=== PATIENT | female | born 1935 | race Caucasian/White ===

== ENCOUNTER 2020-03-12 19:00 | Inpatient (IN) | payer BC, SELFPAY ==
[~2020-03-12] VITALS: Ht 162.6 cm; Wt 41.4 kg
[2020-03-12 19:05] VITALS: BP_SYST 141
--- NOTE | 2020-03-12 19:05 | NUR ---
Pt triaged awaiting bed placement in [facility] at this time
--- NOTE | 2020-03-12 20:40 | NUR ---
Placed in room 2 . Placed on machine maintenance mechanic, blood pressure machine and pulse oximeter. To gown for exam. Side rails up. Report given to Carola HERRING.
--- NOTE | 2020-03-12 20:42 | NUR ---
Patient BIB by J[facility] from [facility]. C/O GI bleeding x today. Per reported, patient had rectal bleeding today. Hx Depression, Dementia, GERD. A/O,X1, denies pain, place patient on caridac monitor and pulse ox.
[2020-03-12] MEDS ORDERED: LUBI24CA5 PO (20:52)
[2020-03-12] MEDS ORDERED: FAMO20TA8 PO (20:52)
[2020-03-12] MEDS ORDERED: BISA10SU61 RC (20:52)
[2020-03-12] MEDS ORDERED: SER25 PO (20:52)
[2020-03-12] MEDS ORDERED: POLY17PO4 PO (20:52)
[2020-03-12] MEDS ORDERED: MULT-976 PO (20:52)
--- NOTE | 2020-03-12 20:53 | NUR ---
Medication reconciliation completed with information provided by facility. Any prior medication reconciliation on file was reviewed and corrected.
--- NOTE | 2020-03-12 21:00 | NUR ---
swabbed rectal for occult blood and sent to lab
--- NOTE | 2020-03-12 21:09 | NUR ---
Blood for labwork drawn from furniture stainer. Patient tolerated well.
[2020-03-12 21:53] LABS: ANION GAP 7 (5-15); CALCIUM 8.5 mg/dL (8.4-11.0); CHLORIDE 103 mmol/L (98-107); CREATININE 1.16 mg/dL (0.55-1.30); GLUCOSE 167 mg/dL (70-99); POTASSIUM 3.5 mmol/L (3.5-5.1); SODIUM SERUM 138 mmol/L (136-145); UREA NITROGEN, BLOOD 22 mg/dL (8-21)
[2020-03-12 21:58] LABS: ALANINE AMINOTRANSFERASE 24 U/L (12-78); ALBUMIN 2.8 g/dL (3.4-4.8); ASPARTATE AMINOTRANSFERASE 15 U/L (10-37); TOTAL BILIRUBIN 0.3 mg/dL (0.0-1.0)
[2020-03-12 22:00] LABS: PROTHROMBIN TIME 10.1 SECS (9.5-12.5)
[2020-03-12 22:01] LABS: BASOPHILS % (AUTO) 0.1 % (0.0-2.0); HEMATOCRIT 31.1 % (36-48); HEMOGLOBIN 10.6 g/dL (12.0-16.0); LYMPHOCYTES # (AUTO) 1.2 K/uL (1.0-5.5); LYMPHOCYTES % (AUTO) 13.3 % (20.5-51.5); MEAN CORPUSCULAR HEMOGLOBIN 34 pg (27-31); MEAN CORPUSCULAR HGB CONC 34 % (32-36); MEAN CORPUSCULAR VOLUME 100 fL (79.0-98.0); MONOCYTES # (AUTO) 0.6 K/uL (0.0-1.0); MONOCYTES % (AUTO) 7.2 % (1.7-9.3); NEUTROPHILS # (AUTO) 6.9 K/uL (1.8-7.7); NEUTROPHILS % (AUTO) 79.4 % (40.0-70.0); PLATELET COUNT (AUTO) 387 K/uL (130-430); RED BLOOD CELL COUNT(AUTO) 3.12 MIL/uL (4.2-6.2); RED CELL DISTRIBUTION WIDTH 13.2 % (9.0-15.0); WHITE BLOOD COUNT (AUTO) 8.7 K/uL (4.8-10.8)
--- NOTE | 2020-03-12 23:09 | NUR ---
Patient resting quietly. No acute distress noted. Vital signs within normal range.
--- NOTE | 2020-03-13 00:20 | NUR ---
Swbbed Covid19 and MRSA and sent to lab.
--- NOTE | 2020-03-13 00:30 | NUR ---
# 20 gauge angiocath placed to left forearm by NEVAEH Harris. Use of asceptic technique. Opsite placed over site. Blood return noted. Blood for lab drawn from site. Flushed with 10 cc of normal saline. No evidence of infiltration noted. Patient tolerated well.
--- NOTE | 2020-03-13 01:32 | NUR ---
Patient will be admitted to care of Dr. Quach. Admitted to Tele unit. Will go to room 104B. Belongings list completed. Complete and up to date summary report printed. SBAR report to be given at bedside with opportunity for questions.
--- NOTE | 2020-03-13 01:42 | NUR ---
ADMIT NOTE PATIENT ADMITTED TO 104 B, UNDER DR. VERDIN. Addendum: 03/13/20 at 0215 by Simin Boogie RN DUPLICATE*
--- NOTE | 2020-03-13 01:50 | NUR ---
ADMISSION: The patient, KOBE THOMPSON, 84 y/o, F admitted by MEHDI VERDIN MD, was given written information regarding hospital policies, unit procedures and contact persons. Valuables were checked and DOCUMENTED. Addendum: 03/13/20 at 0215 by Simin Boogie RN WRONG TIME. CORRECT TIME 0142*
[2020-03-13 01:51] VITALS: BP_SYST 148
--- NOTE | 2020-03-13 01:51 | NUR ---
INITIAL NOTE PATIENT IS STABLE AND LAYING IN BED. NO S/S OF RESPIRATORY DISTRESS NOTED. CALL LIGHT IN REACH. PATIENT UNSUCCESSFULLY DEMONSTRATES USAGE OF CALL LIGHT. WILL CONTINUE TO MONITOR. BED IS LOCKED, ALARMED, AND AT THE LOWEST POSITION. FALL, SAFETY, ASPIRATION, AND RESPIRATORY PRECAUTIONS WILL BE IN PLACE THROUGHOUT THE SHIFT. PLAN OF CARE IS DISCUSSED WITH PATIENT.
--- NOTE | 2020-03-13 02:19 | NUR ---
CONSULT: CONSULT CALLED FOR DR. ZEINA SCHWAB VIDEO SYSTEM REPAIRER @ THIS MOMENT I SPOKE WITH WU LINDSEY REASON FOR CONSULT: GI BLEEDING REQUESTING CONSULT: DR. RODRIGUEZ ARGON TESTER PHONE NUMBER: [phone]
--- NOTE | 2020-03-13 02:26 | NUR ---
ATTEMPTED TO CALL CELESTINO STRICKLAND, CHILD, FOR MORE INFORMATION ON PT. CALL ANSWERED BUT STATIC. WILL CALL AGAIN.
--- NOTE | 2020-03-13 02:33 | NUR ---
COMMUNICATED WITH [facility] , . COMMUNICATED WITH [facility], ABOUT MORE INFORMATION. STATED THEY WILL CALL BACK WITH MORE INFORMATION. CURRENTLY CONTRACT CONSULTANT DON'T HAVE INFORMATION ON PREVIOUS DIET, MEDICAL RECORDS, AND FLU SHOT.
--- NOTE | 2020-03-13 04:08 | NUR ---
PATIENT IS STABLE AND LAYING IN BED. NO S/S OF RESPIRATORY DISTRESS NOTED. CALL LIGHT IN REACH.
--- NOTE | 2020-03-13 04:35 | NUR ---
PT HAD A BOWEL MOVEMENT AT THIS TIME. BOWEL WAS DARK RED AND LOOSE.
--- NOTE | 2020-03-13 06:00 | NUR ---
CALLED [facility], .NO ANSWER.
--- NOTE | 2020-03-13 06:00 | NUR ---
COMMUNICATED WITH CELESTINO STRICKLAND ABOUT [phone] ABOUT HISTORY AND FLU VACCINE. FAMILY STATED SHE PT DID NOT GET FLU. EM AGREES TO GIVE FLU VACCINE.
--- NOTE | 2020-03-13 06:01 | NUR ---
FAMILY REQUESTED FACETIME WITH PT WHEN SHE WAKES UP. WILL CONTINUE TO MONITOR OR ENDORSE TO AM NURSE.
[2020-03-13] MEDS ORDERED: FLU VACC QS2020-21(65UP)/PF 0.7 ML/SYRINGE I.M. PRN (06:30)
--- NOTE | 2020-03-13 06:35 | NUR ---
CLOSING NOTE PATIENT IS STABLE AND LAYING IN BED. NO S/S OF RESPIRATORY DISTRESS NOTED. CALL LIGHT IN REACH. BED IS LOCKED, ALARMED, AND AT THE LOWEST POSITION. FALL, SAFETY, ASPIRATION, AND RESPIRATORY PRECAUTIONS HAS BEEN IN PLACE THROUGHOUT THE SHIFT. WILL CONTINUE TO MONITOR UNTIL SBAR REPORT IS ENDORSED TO AM NURSE.
--- NOTE | 2020-03-13 09:46 | NUR ---
alert, awake, confused, and disoriented. Seen by GI, clear liquid given, and awaiting KUB. Ate 1/2 jello, and 20cc OJ, then closed mouth.
--- NOTE | 2020-03-13 10:09 | NUR ---
Nutrition Update Ishaan Scale 15 noted. Pt admitted for GI bleed. Diet: clear liquid BMI: 15.7 kg/m2 RD to follow per nutrition care standards.
[2020-03-13 12:00] VITALS: BP_SYST 158
--- NOTE | 2020-03-13 15:22 | NUR ---
DC Planning: Transfer to [facility] net work: notified dtr/Charmaine about transfer pt to [facility] [facility], she is agreeable with POC , transfer to [facility] under dr. Olvera. Peer to peer requested between dr. Olvera and LORRAINE Dela Cruz. BENSON Craig is arranging the transfer and to call nursing station with the transfer details/bed assignment, destination and ambulance transfer and time. Charmaine/dtr # [phone] requests RN to call her when transfer the pt. Hal # [phone].-- NEVAEH Driscoll made aware. Addendum: 03/13/20 at 1644 by Petty Beebe RN >> Dr Quach cancelled the transfer to [facility] [facility] and gave new order to dc pt home with prescription. Per DAINA Jorgensen, she notifed Charmaine who had concerns about pt's condition. She requested pt transferred to [place] as per original order. Joslyn will consult with and coordinate with Hal.
[2020-03-13 16:17] VITALS: BP_SYST 152
--- NOTE | 2020-03-13 16:46 | NUR ---
still very confused, climbed over bedrails, starting walking in room, with minimal assistance, back to bed, slept for about 2 hours, then pulled HL on LFA out. New HL in LAC, #22 in. KUB result reported to dr Hinson, Mineral oil enema initiated. Did double check with critical care rn, Mariela, , per critical care rn, patient did have a large BM, before admitted to the hospital. Received a phone call from daughter, CELESTINO just now, , " i changed my mind, I want my mother go to [place] , instead of back to facility'" Author called [facility] and let Rafa, coordinator, aware of the transfer, so paperwork can proceed.( Rafa's number [phone])
--- NOTE | 2020-03-13 17:11 | NUR ---
DC PLANNING: Spoke with Jet from [facility]. Accepting at [facility] will be Dr. Olvera. Still waiting for bed. If needed, after hours case management can be reached at [phone]. Ambulance with [facility] is on will call. [phone].
--- NOTE | 2020-03-13 17:25 | NUR ---
attending called back, made aware patient is getting transferred to [facility] as scheduled. Mineral oil enema given secondary to severe impaction/ constipation,.
[2020-03-13] MEDS ORDERED: MINERAL OIL 133 ML ENEMA RC ONE (17:30)
[2020-03-13 19:51] VITALS: BP_SYST 157
[2020-03-13 19:52] VITALS: BP_SYST 157
--- NOTE | 2020-03-14 | NUR ---
TRANSPORT CALLED DOMINGUEZ AT [facility] SHE SAID THAT [facility]D ONLY HAS COVID SHE WILL TRY ANOTHER HOSPITAL.
--- NOTE | 2020-03-14 00:08 | NUR ---
DOMINGUEZ CALLED BACK AND PT WILL BE GOING TO [facility] GOING TO ROOM 212B [facility] TELE UNIT REPORT NUMBER [phone] LIFELINE BORING INSPECTOR IS SET FOR [phone] Addendum: 03/14/20 at 0011 by Zeynep Ibrahim CNA ACCEPTING DOCTOR IS DOCTOR NAVID RODRIGUEZ.
--- NOTE | 2020-03-14 00:16 | NUR ---
IV RE-INSERTION: IV site found completely dislodged. Restarted on right forearm, 20 gauge. Successful after 2 attempts. Site saline locked. Will continue monitoring.
--- NOTE | 2020-03-14 00:20 | NUR ---
Report called: Report called to [facility]/Telemetry [phone]. Patient to be placed to room 217 A; room is closer to the nursing station.
[2020-03-14] MEDS ORDERED: FLU VACC QS2020-21(65UP)/PF 0.7 ML/SYRINGE I.M. ONE (01:01)
--- NOTE | 2020-03-14 01:50 | NUR ---
PT TRANSFERRED Report given to NEVAEH WISEMAN at [facility]. Transfer packet with Transfer Orders and Medication Reconciliation form given to EMT with report. Exitcare provided. [facility] ID band removed, replaced with ID band with pt's name and . Right forearm IV site patent and intact. All belongings sent with patient. Patient left floor via gurney escorted by EMT in no distress.
== END 2020-03-14 01:50 | disposition short-term general hospital (02) | DRG 377 ==
LOC: SED 19:00 → STU 03-13 00:06
PROVIDERS: ADMIT Internal Medicine; ATTEND Internal Medicine
DX: K92.2 Gastrointestinal hemorrhage, unspecified (principal); E43 Unspecified severe protein-calorie malnutrition; R64 Cachexia; D64.9 Anemia, unspecified; Z20.828 Contact with and (suspected) exposure to other viral communicable diseases; F03.90 Unspecified dementia, unspecified severity, without behavioral disturbance, psychotic disturbance, mood disturbance, and anxiety; K21.9 Gastro-esophageal reflux disease without esophagitis; K59.00 Constipation, unspecified; Z79.899 Other long term (current) drug therapy
CPT/HCPCS: 36415; 71045; 74018; 80053; 82272; 85025; 85610-TC; 85730-TC; 86886; 86900; 86901; 87081; 93005; 99285; G0378